=== PATIENT | male | born 1995 | race Two or more races ===

== ENCOUNTER → 2017-05-13 | Emergency (ER) | payer OTHER ==
[~2017-05-13] VITALS: Ht 180.3 cm; Wt 99.8 kg
== END | disposition home or self-care (01) ==
LOC: ER 15:57
DX: T15.12XA Foreign body in conjunctival sac, left eye, initial encounter (principal); X58.XXXA Exposure to other specified factors, initial encounter; Y93.89 Activity, other specified; Y92.89 Other specified places as the place of occurrence of the external cause; Y99.8 Other external cause status